=== PATIENT | male | born 1995 | race Native Hawaiian/Other Pacific Islander ===

== ENCOUNTER 2022-03-21 16:58 | Outpatient (CLI) | payer BC | END 2022-03-21 19:14 | disposition home or self-care (01) | LOC: RAD 16:58 | PROVIDERS: ATTEND Nurse Practitioner Family | DX: M79.601 Pain in right arm (principal) ==

== ENCOUNTER 2022-03-22 10:41 | Outpatient (CLI) | payer BC ==
[2022-03-22 11:16] LABS: POTASSIUM 4.4 mmol/L (3.6-5.2)
[2022-03-22 14:02] LABS: PLATELET COUNT 339 K/uL (142-355)
== END 2022-03-22 19:11 | disposition home or self-care (01) ==
LOC: LABW 10:41
PROVIDERS: ATTEND Nurse Practitioner Family
DX: R60.0 Localized edema (principal); M54.12 Radiculopathy, cervical region; M79.601 Pain in right arm
CPT/HCPCS: 36415; 80053; 82550; 82553; 84484; 85027; 85379

== ENCOUNTER 2023-03-30 12:55 | Outpatient (CLI) | payer OTHER | END 2023-03-30 21:53 | disposition home or self-care (01) | LOC: RAD 12:55 | PROVIDERS: ATTEND Nurse Practitioner Family | DX: S00.83XA Contusion of other part of head, initial encounter (principal); Y92.89 Other specified places as the place of occurrence of the external cause ==

== ENCOUNTER 2023-04-03 17:23 | Emergency (ER) | payer OTHER ==
[~2023-04-03] VITALS: Ht 182.9 cm; Wt 117.0 kg
[2023-04-03 18:58] LABS: PLATELET COUNT 298 K/uL (142-355)
[2023-04-03 19:21] LABS: POTASSIUM 4.2 mmol/L (3.6-5.2)
[2023-04-03 19:58] VITALS: BP 133/77
== END 2023-04-03 19:58 | disposition home or self-care (01) ==
LOC: ED 17:23
PROVIDERS: Family Medicine
DX: G50.0 Trigeminal neuralgia (principal); R51.9 Headache, unspecified
CPT/HCPCS: 36415; 80053; 85027; 99283; Q9963